=== PATIENT | female | born 1935 | race Caucasian/White ===

== ENCOUNTER → 2016-11-19 | Outpatient (REF) | payer MEDICARE, OTHER ==
[~2016-11-19] MED LIST: AMLO5TAB2 PO; COUM2.5T11 PO; DIOV320T PO; FURO20TA2 PO; FURO40TA2 PO; GABA-282 PO; KETO2CR TOP; MILKSUS PO; MYOFLEX TOP; NEXI40CA PO; ONDA1TAB15 PO; SENN1TAB2 PO; STAR120T3 PO; STIMATE; TRAM50TA2 PO; TRAZO50TA OR; TYLE500T78 PO; VALS1TAB48 PO; ZETI10TA2 PO; lantus SC; lomotil OR; novolog SC; ventolin inhaler
== END ==
LOC: M LAB REF 17:17
PROVIDERS: ATTEND Nurse Practitioner Adult Health
DX: N61.0 Mastitis without abscess (principal)

== ENCOUNTER → 2017-10-08 | Outpatient (REF) | payer MEDICARE, OTHER ==
[2017-10-08 11:24] LABS: BASO % 0.3 % (0.0-1.0); EOS # 0.1 10^3/uL (0.0-0.50); EOS % 1.7 % (0.0-3.0); HEMATOCRIT 40.3 % (36.0-47.0); HEMOGLOBIN 13.3 g/dl (12.0-16.0); IMMATURE GRANULOCYTE % 0.3 % (0-3.0); LYMPH # 1.5 10^3/uL (1.5-4.5); LYMPH % 21.7 % (24.0-44.0); MEAN CORPUSCULAR HEMOGLOBIN 28.8 pg (27.0-33.0); MEAN CORPUSCULAR VOLUME 87.2 fl (80.0-96.0); MONO # 0.6 10^3/uL (0.0-0.8); NEUTROPHILS # 4.7 10^3/uL (1.8-7.7); PLATELET COUNT, AUTOMATED 198 10^3/uL (150-450); RED BLOOD COUNT 4.62 10^6/uL (4.00-5.40); RED CELL DISTRIBUTION WIDTH 13.4 % (11.5-14.5)
[2017-10-08 11:57] LABS: C REACTIVE PROTEIN QUANTITATIV 6.12 MG/DL (0.00-0.30)
[2017-10-08 12:10] LABS: ERYTHROCYTE SEDIMENTATION RATE 46 mm/hr (0-30)
== END ==
LOC: M LABDRAW1 10:49
DX: M79.661 Pain in right lower leg (principal)
CPT/HCPCS: 86140

== ENCOUNTER → 2017-10-09 | Outpatient (REF) | payer MEDICARE, OTHER ==
[2017-10-09 19:36] LABS: FREE T3 2.5 PG/ML (2.2-4.0)
[2017-10-10 10:26] LABS: THYROID PEROXIDASE ANTIBODY < 28.0 U/ML (<60.0)
[2017-10-10 10:27] LABS: THYROGLOBULIN ANTIBODY 20.8 U/ML (<60.0)
== END ==
LOC: M LAB REF 18:11
DX: E03.9 Hypothyroidism, unspecified (principal)
CPT/HCPCS: 86800

== ENCOUNTER → 2017-11-17 | Outpatient (REF) | payer MEDICARE, OTHER ==
[2017-11-17 16:02] LABS: BASO % 0.4 % (0.0-1.0); EOS # 0.2 10^3/uL (0.0-0.50); EOS % 2.4 % (0.0-3.0); HEMATOCRIT 41.7 % (36.0-47.0); HEMOGLOBIN 13.6 g/dl (12.0-15.5); IMMATURE GRANULOCYTE % 0.4 % (0-3.0); LYMPH # 1.8 10^3/uL (1.5-4.5); LYMPH % 23.3 % (24.0-44.0); MEAN CORPUSCULAR HEMOGLOBIN 28.2 pg (27.0-33.0); MEAN CORPUSCULAR HGB CONC 32.6 g/dl (32.0-36.5); MEAN CORPUSCULAR VOLUME 86.3 fl (80.0-96.0); MONO # 0.7 10^3/uL (0.0-0.8); MONO % 8.5 % (0.0-5.0); NEUTROPHILS # 5.1 10^3/uL (1.8-7.7); PLATELET COUNT, AUTOMATED 210 10^3/uL (150-450); RED BLOOD COUNT 4.83 10^6/uL (4.00-5.40); RED CELL DISTRIBUTION WIDTH 13.4 % (11.5-14.5); WHITE BLOOD COUNT 7.8 10^3/uL (4.0-10.0)
[2017-11-17 16:42] LABS: ERYTHROCYTE SEDIMENTATION RATE 29 mm/hr (0-30)
== END ==
LOC: M LABDRAW1 13:16
DX: M25.561 Pain in right knee (principal)
CPT/HCPCS: 86140

== ENCOUNTER → 2018-02-04 | Outpatient (CLI) | payer MEDICARE, OTHER ==
[~2018-02-04] MED LIST changes: -AMLO5TAB2 PO; -COUM2.5T11 PO; -DIOV320T PO; -FURO20TA2 PO; -FURO40TA2 PO; -GABA-282 PO; +GASTROGRAFIN SOLUTION 30ML (Q9963) As Ordered; +ISOVUE-370 76% 100ML VIAL (Q9967) As Ordered; -KETO2CR TOP; -MILKSUS PO; -MYOFLEX TOP; -NEXI40CA PO; -ONDA1TAB15 PO; -SENN1TAB2 PO; -STAR120T3 PO; -STIMATE; -TRAM50TA2 PO; -TRAZO50TA OR; -TYLE500T78 PO; -VALS1TAB48 PO; -ZETI10TA2 PO; -lantus SC; -lomotil OR; -novolog SC; -ventolin inhaler
== END ==
LOC: M RAD 14:01
DX: R93.5 Abnormal findings on diagnostic imaging of other abdominal regions, including retroperitoneum (principal); R10.11 Right upper quadrant pain

== ENCOUNTER 2018-02-06 13:31 | Inpatient (IN) | payer MEDICARE, OTHER ==
[2018-02-06 15:08] LABS: BEDSIDE GLUCOSE 345 MG/DL (83-110)
[2018-02-06 15:22] LABS: BASO % 0.2 % (0.0-1.0); EOS # 0.1 10^3/uL (0.0-0.50); EOS % 1.1 % (0.0-3.0); HEMATOCRIT 39.5 % (36.0-47.0); HEMOGLOBIN 12.8 g/dl (12.0-15.5); IMMATURE GRANULOCYTE % 0.4 % (0-3.0); LYMPH % 22.1 % (24.0-44.0); MEAN CORPUSCULAR HEMOGLOBIN 28.5 pg (27.0-33.0); MEAN CORPUSCULAR HGB CONC 32.4 g/dl (32.0-36.5); MONO # 0.7 10^3/uL (0.0-0.8); MONO % 14.2 % (0.0-5.0); NEUTROPHILS # 2.8 10^3/uL (1.8-7.7); PLATELET COUNT, AUTOMATED 150 10^3/uL (150-450); RED BLOOD COUNT 4.49 10^6/uL (4.00-5.40); RED CELL DISTRIBUTION WIDTH 14.1 % (11.5-14.5); WHITE BLOOD COUNT 4.6 10^3/uL (4.0-10.0)
[2018-02-06 15:24] LABS: INR 1.06; PROTHROMBIN TIME 13.9 SECONDS (12.1-14.4)
[2018-02-06] MEDS: NS 1,000 ML IV ×2 (15:29→21:06)
[2018-02-06] MEDS: ONDANSETRON 4MG/2ML VIAL (J2405) IV (15:30)
[2018-02-06] MEDS: MORPHINE 2 MG/ML 1ML SYRINGE (J2270) IV (15:30)
[2018-02-06 15:40] LABS: LACTIC ACID SEPSIS PROTOCOL 3.1 MMOL/L (0.4-2.0)
[2018-02-06 16:37] LABS: ALBUMIN 3.3 GM/DL (3.2-5.2); ALBUMIN/GLOBULIN RATIO 0.87 (1.00-1.93); ALKALINE PHOSPHATASE 166 U/L (45-117); ALT/SGPT 21 U/L (12-78); ANION GAP 11 MEQ/L (8-16); AST/SGOT 10 U/L (7-37); BILIRUBIN,DIRECT 0.2 MG/DL (0.0-0.2); BILIRUBIN,TOTAL 0.5 MG/DL (0.2-1.0); BLOOD UREA NITROGEN 24 MG/DL (7-18); CALCIUM LEVEL 8.9 MG/DL (8.8-10.2); CARBON DIOXIDE LEVEL 28 MEQ/L (21-32); CHLORIDE LEVEL 100 MEQ/L (98-107); CK-MB VALUE MASS < 1.0 NG/ML (<3.6); CPK CREATINE PHOSPHOKINASE 38 U/L (26-192); CREATININE FOR GFR 1.29 MG/DL (0.55-1.30); GLOMERULAR FILTRATION RATE 42.2 (>32); GLUCOSE, FASTING 341 MG/DL (70-100); LIPASE 72 U/L (73-393); MB/CK RELATIVE INDEX 2.63 (< OR =4); POTASSIUM SERUM 4.7 MEQ/L (3.5-5.1); SODIUM LEVEL 139 MEQ/L (136-145); TOTAL PROTEIN 7.1 GM/DL (6.4-8.2); TROPONIN I < 0.02 NG/ML (< 0.10)
[2018-02-06] MEDS: PIPERACILLIN/TAZOBACTAM SOD 3.375 GM in D5W MINI-BAG PLUS 50 ML IV (17:29)
[2018-02-06] MEDS: SUCRALFATE SUSP 1GM/10ML UD PO (17:44)
[2018-02-06 20:14] LABS: CA 125 175.5 U/ML (<30.2)
[2018-02-06] MEDS ORDERED: LEVEMIR (INSULIN DETEMIR) 1 UNITS/0.01ML SQ (21:00)
[2018-02-06] MEDS ORDERED: DEXTROSE 50% 50 ML SYRINGE IV (21:15)
[2018-02-06] MEDS ORDERED: MORPHINE 4 MG/ML 1ML VIAL/SYRINGE (J2270) IV (21:15)
[2018-02-06] MEDS ORDERED: GLUCAGON FOR INJ 1 MG VIAL (J1610) SC (21:15)
[2018-02-06] MEDS ORDERED: GLUCOSE 4 GM CHEW TABLET PO (21:15)
[2018-02-06] MEDS ORDERED: ONDANSETRON 4MG/2ML VIAL (J2405) IV (21:15)
[2018-02-06 21:24] LABS: BEDSIDE GLUCOSE 478 MG/DL (83-110)
[2018-02-06] MEDS: GABAPENTIN 300 MG CAP PO (21:39)
[2018-02-06] MEDS: HEPARIN SOD (PORCINE) 5000 UNITS/ML VIAL SC ×3 (21:39→22:00)
[2018-02-06] MEDS: traZODone 50 MG TAB PO (21:39)
[2018-02-06] MEDS: HumaLOG INSULIN (NovoLOG) PER UNIT SC ×2 (21:40→23:47)
[2018-02-06 23:19] LABS: BEDSIDE GLUCOSE 481 MG/DL (83-110)
[2018-02-06] MEDS: PIPERACILLIN/TAZOBACTAM SOD 2.25 GM in D5W MINI-BAG PLUS 50 ML IV (23:20)
[2018-02-07] MEDS: NS 1,000 ML IV (04:25)
[2018-02-07] MEDS: PIPERACILLIN/TAZOBACTAM SOD 2.25 GM in D5W MINI-BAG PLUS 50 ML IV ×2 (05:10→12:36)
[2018-02-07 06:23] LABS: HEMATOCRIT 34.2 % (36.0-47.0); HEMOGLOBIN 11.2 g/dl (12.0-15.5); MEAN CORPUSCULAR HEMOGLOBIN 28.9 pg (27.0-33.0); MEAN CORPUSCULAR HGB CONC 32.7 g/dl (32.0-36.5); MEAN CORPUSCULAR VOLUME 88.1 fl (80.0-96.0); PLATELET COUNT, AUTOMATED 125 10^3/uL (150-450); RED BLOOD COUNT 3.88 10^6/uL (4.00-5.40); RED CELL DISTRIBUTION WIDTH 14.1 % (11.5-14.5); WHITE BLOOD COUNT 3.8 10^3/uL (4.0-10.0)
[2018-02-07 06:40] LABS: ALBUMIN 2.7 GM/DL (3.2-5.2); ALBUMIN/GLOBULIN RATIO 0.79 (1.00-1.93); ALKALINE PHOSPHATASE 125 U/L (45-117); ALT/SGPT 20 U/L (12-78); ANION GAP 7 MEQ/L (8-16); AST/SGOT 13 U/L (7-37); BILIRUBIN,TOTAL 0.5 MG/DL (0.2-1.0); BLOOD UREA NITROGEN 23 MG/DL (7-18); CALCIUM LEVEL 8.2 MG/DL (8.8-10.2); CARBON DIOXIDE LEVEL 29 MEQ/L (21-32); CHLORIDE LEVEL 104 MEQ/L (98-107); CREATININE FOR GFR 1.27 MG/DL (0.55-1.30); GLUCOSE, FASTING 301 MG/DL (70-100); POTASSIUM SERUM 4.4 MEQ/L (3.5-5.1); SODIUM LEVEL 140 MEQ/L (136-145); TOTAL PROTEIN 6.1 GM/DL (6.4-8.2)
[2018-02-07] MEDS: HumaLOG INSULIN (NovoLOG) PER UNIT SC ×2 (07:53→12:36)
[2018-02-07] MEDS: VALSARTAN 80 MG TAB (DIOVAN) PO (07:54)
[2018-02-07] MEDS: amLODIPine 5 MG TAB PO (07:55)
[2018-02-07] MEDS: LEVOTHYROXINE 25MCG TABLET (0.025MG) PO (07:55)
[2018-02-07] MEDS: PANTOPRAZOLE 40MG TAB (PROTONIX) PO (07:55)
[2018-02-07] MEDS: FUROSEMIDE 40 MG TAB PO (07:56)
[2018-02-07] MEDS: EZETIMIBE 10 MG TAB (ZETIA) PO (07:56)
[2018-02-07] MEDS ORDERED: MORPHINE 4 MG/ML 1ML VIAL/SYRINGE (J2270) IV (08:30)
[2018-02-07] MEDS: NYSTATIN 100,000 UNITS/GM TOPICAL PWD 15 GM TOP (10:23)
[2018-02-07 11:36] LABS: BEDSIDE GLUCOSE 402 MG/DL (83-110)
[2018-02-07] MEDS ORDERED: INSULIN GLARGINE SC (21:00)
== END 2018-02-07 14:15 | disposition home or self-care (01) | DRG 375 ==
LOC: M ED 13:31 → M ED INP 21:06 → M MS5PR 22:55
DX: C78.6 Secondary malignant neoplasm of retroperitoneum and peritoneum (principal); C56.1 Malignant neoplasm of right ovary; C78.7 Secondary malignant neoplasm of liver and intrahepatic bile duct; E87.2 Acidosis; E11.65 Type 2 diabetes mellitus with hyperglycemia; I12.9 Hypertensive chronic kidney disease with stage 1 through stage 4 chronic kidney disease, or unspecified chronic kidney disease; E78.5 Hyperlipidemia, unspecified; K21.9 Gastro-esophageal reflux disease without esophagitis; M79.7 Fibromyalgia; E66.9 Obesity, unspecified; N18.9 Chronic kidney disease, unspecified; E03.9 Hypothyroidism, unspecified; K80.20 Calculus of gallbladder without cholecystitis without obstruction; K76.0 Fatty (change of) liver, not elsewhere classified; D69.1 Qualitative platelet defects; M19.90 Unspecified osteoarthritis, unspecified site; Z96.651 Presence of right artificial knee joint; Z90.710 Acquired absence of both cervix and uterus; Z98.49 Cataract extraction status, unspecified eye; Z79.4 Long term (current) use of insulin; Z79.899 Other long term (current) drug therapy; Z88.6 Allergy status to analgesic agent; Z91.041 Radiographic dye allergy status; Z88.8 Allergy status to other drugs, medicaments and biological substances; Z88.2 Allergy status to sulfonamides; Z91.013 Allergy to seafood; Z86.73 Personal history of transient ischemic attack (TIA), and cerebral infarction without residual deficits

== ENCOUNTER 2018-02-17 19:22 | Observation (INO) | payer MEDICARE, OTHER ==
[2018-02-17] MEDS: traZODone 50 MG TAB PO (21:00)
[2018-02-17] MEDS: NS 1,000 ML IV (21:00)
[2018-02-17] MEDS: LANTUS SC (21:00)
[2018-02-17] MEDS ORDERED: LEVEMIR (INSULIN DETEMIR) 1 UNITS/0.01ML SC (21:00)
[2018-02-17] MEDS: HumuLIN R (REGULAR) INSULIN (NovoLIN R) **100U/ML** PER UNIT IV ×2 (21:00→23:00)
[2018-02-17 21:06] LABS: BASO % 0.3 % (0.0-1.0); EOS % 0.5 % (0.0-3.0); HEMATOCRIT 41.2 % (36.0-47.0); HEMOGLOBIN 13.2 g/dl (12.0-15.5); IMMATURE GRANULOCYTE % 0.3 % (0-3.0); LYMPH # 0.9 10^3/uL (1.5-4.5); LYMPH % 16.2 % (24.0-44.0); MEAN CORPUSCULAR HEMOGLOBIN 28.9 pg (27.0-33.0); MEAN CORPUSCULAR VOLUME 90.2 fl (80.0-96.0); MONO # 0.8 10^3/uL (0.0-0.8); MONO % 13.1 % (0.0-5.0); NEUTROPHILS % 69.6 % (36.0-66.0); PLATELET COUNT, AUTOMATED 155 10^3/uL (150-450); RED BLOOD COUNT 4.57 10^6/uL (4.00-5.40); RED CELL DISTRIBUTION WIDTH 14.7 % (11.5-14.5); WHITE BLOOD COUNT 5.8 10^3/uL (4.0-10.0)
[2018-02-17] MEDS: PERCOCET 5MG/325MG TAB PO (21:15)
[2018-02-17 21:42] LABS: ESTIMATED AVERAGE GLUCOSE 255 MG/DL (60-110); HEMOGLOBIN A1c 10.5 %
[2018-02-17 21:58] LABS: VENOUS BASE EXCESS -4.2 (-2.0-2.0); VENOUS HCO3 21.6 MEQ/L (23.0-27.0); VENOUS O2 SATURATION 66.8 % (60.0-80.0); VENOUS PARTIAL PRESSURE CO2 42.3 mmHg (38.0-50.0); VENOUS PARTIAL PRESSURE O2 36.9 mmHg (30.0-50.0); VENOUS PH 7.326 UNITS (7.330-7.430); VENOUS STANDARD HCO3 20.4 MEQ/L; VENOUS TOTAL CO2 22.9 MEQ/L (24.0-28.0)
[2018-02-17 22:22] LABS: ALBUMIN 3.2 GM/DL (3.2-5.2); ALBUMIN/GLOBULIN RATIO 0.94 (1.00-1.93); ALKALINE PHOSPHATASE 211 U/L (45-117); ALT/SGPT 24 U/L (12-78); ANION GAP 13 MEQ/L (8-16); AST/SGOT 10 U/L (7-37); BILIRUBIN,DIRECT 0.2 MG/DL (0.0-0.2); BILIRUBIN,TOTAL 0.6 MG/DL (0.2-1.0); BLOOD UREA NITROGEN 40 MG/DL (7-18); CALCIUM LEVEL 8.5 MG/DL (8.8-10.2); CARBON DIOXIDE LEVEL 26 MEQ/L (21-32); CHLORIDE LEVEL 96 MEQ/L (98-107); CREATININE FOR GFR 1.87 MG/DL (0.55-1.30); GLOMERULAR FILTRATION RATE 27.5 (>32); LIPASE 41 U/L (73-393); POTASSIUM SERUM 4.1 MEQ/L (3.5-5.1); SODIUM LEVEL 135 MEQ/L (136-145); TOTAL PROTEIN 6.6 GM/DL (6.4-8.2)
[2018-02-17] MEDS ORDERED: GLUCAGON FOR INJ 1 MG VIAL (J1610) SC (22:45)
[2018-02-17] MEDS ORDERED: GLUCOSE 4 GM CHEW TABLET PO (22:45)
[2018-02-17] MEDS ORDERED: ALBUTEROL 90 MCG/ACT 8GM HFA INHALER INH (22:45)
[2018-02-17] MEDS ORDERED: ONDANSETRON 4 MG ORAL DISINTEGRATING TAB (Q0162 PER 1MG) PO (22:45)
[2018-02-17] MEDS ORDERED: BISACODYL 10 MG SUPP PR (22:45)
[2018-02-17] MEDS ORDERED: D5W/LR 1,000 ML IV (22:45)
[2018-02-17 22:52] LABS: GLUCOSE, FASTING 715 MG/DL (70-100)
[2018-02-17] MEDS: CEPHALEXIN 500 MG CAP PO (23:51)
[2018-02-18] MEDS: GABAPENTIN 300 MG CAP PO (01:06)
[2018-02-18] MEDS ORDERED: HumaLOG INSULIN (NovoLOG) PER UNIT SC ×2 (02:00→07:30)
[2018-02-18] MEDS: HumaLOG INSULIN (NovoLOG) PER UNIT SC ×4 (02:13→13:00)
[2018-02-18 03:19] LABS: BEDSIDE GLUCOSE 454 MG/DL (83-110)
[2018-02-18 05:56] LABS: BEDSIDE GLUCOSE 105 MG/DL (83-110)
[2018-02-18 06:31] LABS: HEMATOCRIT 36.7 % (36.0-47.0); HEMOGLOBIN 12.2 g/dl (12.0-15.5); MEAN CORPUSCULAR HEMOGLOBIN 28.6 pg (27.0-33.0); MEAN CORPUSCULAR HGB CONC 33.2 g/dl (32.0-36.5); MEAN CORPUSCULAR VOLUME 85.9 fl (80.0-96.0); PLATELET COUNT, AUTOMATED 144 10^3/uL (150-450); RED BLOOD COUNT 4.27 10^6/uL (4.00-5.40); RED CELL DISTRIBUTION WIDTH 14.3 % (11.5-14.5)
[2018-02-18 06:43] LABS: ESTIMATED AVERAGE GLUCOSE 258 MG/DL (60-110); HEMOGLOBIN A1c 10.6 %
[2018-02-18 06:57] LABS: ALBUMIN 3.1 GM/DL (3.2-5.2); ALBUMIN/GLOBULIN RATIO 0.86 (1.00-1.93); ALKALINE PHOSPHATASE 195 U/L (45-117); ALT/SGPT 23 U/L (12-78); ANION GAP 9 MEQ/L (8-16); AST/SGOT 12 U/L (7-37); BILIRUBIN,TOTAL 0.4 MG/DL (0.2-1.0); BLOOD UREA NITROGEN 37 MG/DL (7-18); CARBON DIOXIDE LEVEL 29 MEQ/L (21-32); CHLORIDE LEVEL 104 MEQ/L (98-107); GLOMERULAR FILTRATION RATE 41.9 (>32); GLUCOSE, FASTING 81 MG/DL (70-100); POTASSIUM SERUM 3.4 MEQ/L (3.5-5.1); SODIUM LEVEL 142 MEQ/L (136-145); TOTAL PROTEIN 6.7 GM/DL (6.4-8.2)
[2018-02-18] MEDS: VALSARTAN 80 MG TAB (DIOVAN) PO (09:22)
[2018-02-18] MEDS: NS 1,000 ML IV (09:22)
[2018-02-18] MEDS: PANTOPRAZOLE 40MG TAB (PROTONIX) PO (09:23)
[2018-02-18] MEDS: EZETIMIBE 10 MG TAB (ZETIA) PO (09:23)
[2018-02-18] MEDS: FUROSEMIDE 40 MG TAB PO (09:23)
[2018-02-18] MEDS: amLODIPine 5 MG TAB PO (09:23)
[2018-02-18] MEDS: CEPHALEXIN 500 MG CAP PO ×2 (09:23→13:00)
[2018-02-18] MEDS: LEVOTHYROXINE 25MCG TABLET (0.025MG) PO (09:23)
[2018-02-18] MEDS: NYSTATIN 100,000 UNITS/GM TOPICAL PWD 15 GM TOP (09:24)
[2018-02-18] MEDS: ENOXAPARIN 30 MG/0.3 ML SYR (J1650) SC (09:24)
[2018-02-18] MEDS: ANEXSIA, NORCO 7.5MG/325MG TABLET(HYDROCODONE/APAP) PO (09:29)
[2018-02-18 09:30] LABS: BEDSIDE GLUCOSE > 600 MG/DL (83-110)
[2018-02-18 09:31] LABS: BEDSIDE GLUCOSE > 600 MG/DL (83-110)
[2018-02-18 09:31] LABS: BEDSIDE GLUCOSE > 600 MG/DL (83-110)
[2018-02-18 12:00] LABS: BEDSIDE GLUCOSE 314 MG/DL (83-110)
[2018-02-18] MEDS: POTASSIUM CHLORIDE 10 MEQ SR TABLET PO (13:00)
[2018-02-18] MEDS ORDERED: LEVEMIR (INSULIN DETEMIR) 1 UNITS/0.01ML SC (21:00)
== END 2018-02-18 16:00 | disposition short-term general hospital (02) ==
LOC: M MS4PR 02-18 00:16 → M ED 19:22 → M ED INP 22:31
DX: D39.11 Neoplasm of uncertain behavior of right ovary (principal); R10.84 Generalized abdominal pain; R11.0 Nausea; N17.9 Acute kidney failure, unspecified; I10 Essential (primary) hypertension; E78.4 Other hyperlipidemia; E11.9 Type 2 diabetes mellitus without complications; M79.7 Fibromyalgia; K21.9 Gastro-esophageal reflux disease without esophagitis; Z79.4 Long term (current) use of insulin; Z91.013 Allergy to seafood; Z91.041 Radiographic dye allergy status; Z79.899 Other long term (current) drug therapy; Z88.2 Allergy status to sulfonamides; Z88.8 Allergy status to other drugs, medicaments and biological substances
CPT/HCPCS: J1650

== ENCOUNTER 2018-03-08 14:00 | Inpatient (IN) | payer MEDICARE, OTHER ==
[2018-03-08] MEDS: NS 500 ML IV (14:53)
[2018-03-08] MEDS: HYDROMORPHONE HCL 0.5 MG/ 0.5 ML SYRINGE (J1170 PER 1) IV ×2 (14:53→18:25)
[2018-03-08 15:56] LABS: BASO % 0.4 % (0.0-1.0); EOS # 0.1 10^3/uL (0.0-0.50); EOS % 1.7 % (0.0-3.0); HEMATOCRIT 36.3 % (36.0-47.0); HEMOGLOBIN 11.7 g/dl (12.0-15.5); IMMATURE GRANULOCYTE % 0.8 % (0-3.0); LYMPH # 0.8 10^3/uL (1.5-4.5); LYMPH % 15.1 % (24.0-44.0); MEAN CORPUSCULAR HEMOGLOBIN 28.6 pg (27.0-33.0); MEAN CORPUSCULAR HGB CONC 32.2 g/dl (32.0-36.5); MEAN CORPUSCULAR VOLUME 88.8 fl (80.0-96.0); MONO # 0.6 10^3/uL (0.0-0.8); MONO % 10.8 % (0.0-5.0); NEUTROPHILS # 3.7 10^3/uL (1.8-7.7); NEUTROPHILS % 71.2 % (36.0-66.0); PLATELET COUNT, AUTOMATED 176 10^3/uL (150-450); RED BLOOD COUNT 4.09 10^6/uL (4.00-5.40); RED CELL DISTRIBUTION WIDTH 20.1 % (11.5-14.5); WHITE BLOOD COUNT 5.2 10^3/uL (4.0-10.0)
[2018-03-08 16:06] LABS: INR 1.27
[2018-03-08 16:07] LABS: ALBUMIN 2.5 GM/DL (3.2-5.2); ALBUMIN/GLOBULIN RATIO 0.66 (1.00-1.93); ALKALINE PHOSPHATASE 1635 U/L (45-117); ALT/SGPT 262 U/L (12-78); AMYLASE 10 U/L (25-115); ANION GAP 9 MEQ/L (8-16); AST/SGOT 338 U/L (7-37); BILIRUBIN,DIRECT 9.7 MG/DL (0.0-0.2); BILIRUBIN,TOTAL 11.2 MG/DL (0.2-1.0); BLOOD UREA NITROGEN 16 MG/DL (7-18); CALCIUM LEVEL 8.5 MG/DL (8.8-10.2); CARBON DIOXIDE LEVEL 26 MEQ/L (21-32); CHLORIDE LEVEL 103 MEQ/L (98-107); CK-MB VALUE MASS < 1.0 NG/ML (<3.6); CPK CREATINE PHOSPHOKINASE 24 U/L (26-192); CREATININE FOR GFR 0.95 MG/DL (0.55-1.30); GLOMERULAR FILTRATION RATE > 60.0 (>32); GLUCOSE, FASTING 190 MG/DL (70-100); LIPASE 29 U/L (73-393); MB/CK RELATIVE INDEX 4.16 (< OR =4); PARTIAL THROMBOPLASTIN TIME 24.5 SECONDS (25.4-37.6); POTASSIUM SERUM 4.4 MEQ/L (3.5-5.1); SODIUM LEVEL 138 MEQ/L (136-145); TOTAL PROTEIN 6.3 GM/DL (6.4-8.2); TROPONIN I < 0.02 NG/ML (< 0.10)
[2018-03-08] MEDS: ONDANSETRON 4MG/2ML VIAL (J2405) IV (18:24)
[2018-03-08 18:43] LABS: KETONE, URINE AUTO RFX NEGATIVE (NEGATIVE); LEUKOCYTE ESTERASE UR AUTO RFX NEGATIVE (NEGATIVE); MUCUS, URINE RFX SMALL (NEGATIVE); NITRITE, URINE AUTO RFX NEGATIVE (NEGATIVE); RBC, URINE AUTO RFX 3 /HPF (0-3); SPECIFIC GRAVITY UR AUTO RFX 1.029 (1.002-1.035); SQUAM EPITHELIAL CELL UR AURFX 14 /HPF (0-6); WBC, URINE AUTO RFX 5 /HPF (0-3)
[2018-03-08] MEDS ORDERED: ACETAMINOPHEN TAB 650MG DOSE (2X325MG) PO (19:15)
[2018-03-08] MEDS ORDERED: ALBUTEROL 90 MCG/ACT 8GM HFA INHALER INH (19:15)
[2018-03-08] MEDS ORDERED: GLUCOSE 4 GM CHEW TABLET PO (19:15)
[2018-03-08] MEDS ORDERED: ONDANSETRON 4MG/2ML VIAL (J2405) IV (19:15)
[2018-03-08] MEDS ORDERED: DEXTROSE 50% 50 ML SYRINGE IV (19:15)
[2018-03-08] MEDS ORDERED: BISACODYL 10 MG SUPP PR (19:15)
[2018-03-08] MEDS ORDERED: GLUCAGON FOR INJ 1 MG VIAL (J1610) SC (19:15)
[2018-03-08] MEDS ORDERED: ANEXSIA, NORCO 7.5MG/325MG TABLET(HYDROCODONE/APAP) PO ×2 (19:15→21:15)
[2018-03-08] MEDS ORDERED: MORPHINE 4 MG/ML 1ML VIAL/SYRINGE (J2270) IV ×2 (19:30→21:15)
[2018-03-08] MEDS: HumaLOG INSULIN (NovoLOG) PER UNIT SC (22:10)
[2018-03-08 22:32] LABS: BEDSIDE GLUCOSE 195 MG/DL (83-110)
[2018-03-08] MEDS: LANTUS 100 UNIT/ML SC (22:38)
[2018-03-08] MEDS: ONDANSETRON 4 MG ORAL DISINTEGRATING TAB (Q0162 PER 1MG) PO (22:58)
[2018-03-08] MEDS: traZODone 50 MG TAB PO (23:02)
[2018-03-08] MEDS: GABAPENTIN 300 MG CAP PO (23:02)
[2018-03-08] MEDS: PERCOCET 5MG/325MG TAB PO (23:05)
[2018-03-09 05:14] LABS: HEMATOCRIT 33.2 % (36.0-47.0); HEMOGLOBIN 10.7 g/dl (12.0-15.5); MEAN CORPUSCULAR HEMOGLOBIN 28.7 pg (27.0-33.0); MEAN CORPUSCULAR HGB CONC 32.2 g/dl (32.0-36.5); PLATELET COUNT, AUTOMATED 166 10^3/uL (150-450); RED BLOOD COUNT 3.73 10^6/uL (4.00-5.40); RED CELL DISTRIBUTION WIDTH 20.4 % (11.5-14.5); WHITE BLOOD COUNT 4.9 10^3/uL (4.0-10.0)
[2018-03-09 05:48] LABS: ESTIMATED AVERAGE GLUCOSE 214 MG/DL (60-110); HEMOGLOBIN A1c 9.1 %
[2018-03-09] MEDS: LEVOTHYROXINE 25MCG TABLET (0.025MG) PO (05:49)
[2018-03-09 05:50] LABS: ALBUMIN 2.3 GM/DL (3.2-5.2); ALBUMIN/GLOBULIN RATIO 0.53 (1.00-1.93); ALKALINE PHOSPHATASE 1455 U/L (45-117); ALT/SGPT 241 U/L (12-78); ANION GAP 12 MEQ/L (8-16); AST/SGOT 322 U/L (7-37); BILIRUBIN,TOTAL 11.4 MG/DL (0.2-1.0); BLOOD UREA NITROGEN 17 MG/DL (7-18); CALCIUM LEVEL 8.6 MG/DL (8.8-10.2); CARBON DIOXIDE LEVEL 24 MEQ/L (21-32); CHLORIDE LEVEL 102 MEQ/L (98-107); CREATININE FOR GFR 0.94 MG/DL (0.55-1.30); GLOMERULAR FILTRATION RATE > 60.0 (>32); GLUCOSE, FASTING 229 MG/DL (70-100); POTASSIUM SERUM 4.4 MEQ/L (3.5-5.1); SODIUM LEVEL 138 MEQ/L (136-145); TOTAL PROTEIN 6.6 GM/DL (6.4-8.2)
[2018-03-09] MEDS: ENOXAPARIN 40 MG/0.4 ML SYRINGE (J1650) SC (09:00)
[2018-03-09] MEDS: EZETIMIBE 10 MG TAB (ZETIA) PO (09:53)
[2018-03-09] MEDS: PANTOPRAZOLE 40MG TAB (PROTONIX) PO (09:57)
[2018-03-09] MEDS: MULTIVITAMINS/MINERALS THERAP 1 TAB PO (09:57)
[2018-03-09] MEDS: NYSTATIN 100,000 UNITS/GM TOPICAL PWD 15 GM TOP (09:58)
[2018-03-09] MEDS: amLODIPine 5 MG TAB PO (10:02)
[2018-03-09] MEDS: ONDANSETRON 4 MG ORAL DISINTEGRATING TAB (Q0162 PER 1MG) PO (11:36)
[2018-03-09] MEDS ORDERED: CIPROFLOXACIN 400 MG in APPROPRIATE DILUENT 1 EA IV (12:00)
[2018-03-09] MEDS: KCL 20MEQ IN 0.45NS 1000ML 1,000 ML IV ×4 (13:00→21:41)
[2018-03-09] MEDS ORDERED: metroNIDAZOLE 500 MG in APPROPRIATE DILUENT 1 EA IV (13:00)
[2018-03-09 13:11] LABS: BEDSIDE GLUCOSE 233 MG/DL (83-110)
[2018-03-09] MEDS: PERCOCET 5MG/325MG TAB PO (13:37)
[2018-03-09] MEDS: HumaLOG INSULIN (NovoLOG) PER UNIT SC ×2 (13:40→18:00)
[2018-03-09] MEDS ORDERED: ONDANSETRON 4MG/2ML VIAL (J2405) As Ordered (14:48)
[2018-03-09] MEDS ORDERED: LIDOCAINE 2% INJ 100 MG/5 ML SDV (FOR ANES.) As Ordered (14:48)
[2018-03-09] MEDS ORDERED: fentaNYL 100 MCG/2 ML INJECTION (J3010) As Ordered ×3 (14:48→19:03)
[2018-03-09] MEDS ORDERED: PROPOFOL 200 MG/20 ML VIAL As Ordered (14:48)
[2018-03-09] MEDS ORDERED: ROCURONIUM BROMIDE 50 MG/5 ML VIAL As Ordered (14:48)
[2018-03-09] MEDS: DESMOPRESSIN ACETATE IV (15:07)
[2018-03-09] MEDS: NS IV (15:07)
[2018-03-09 15:50] LABS: IMMEDIATE SPIN CROSSMATCH 1
[2018-03-09] MEDS ORDERED: ISOVUE-300 61% 50ML VIAL (Q9967) As Ordered (16:24)
[2018-03-09] MEDS: HumuLIN N INSULIN (NovoLIN N) PER UNIT SC (17:30)
[2018-03-09] MEDS ORDERED: METOCLOPRAMIDE INJ 10MG/2ML VIAL (J2765) As Ordered (19:49)
[2018-03-09] MEDS ORDERED: DESFLURANE 240 ML INHALANT As Ordered (19:52)
[2018-03-09] MEDS ORDERED: GLYCOPYRROLATE INJ 0.2 MG/ML 2 ML VIAL As Ordered (19:56)
[2018-03-09] MEDS ORDERED: NEOSTIGMINE 10 MG/10 ML VIAL (J2710) As Ordered (19:56)
[2018-03-09] MEDS ORDERED: fentaNYL 100 MCG/2 ML INJECTION (J3010) IV (20:30)
[2018-03-09] MEDS ORDERED: ONDANSETRON 4MG/2ML VIAL (J2405) IV (20:30)
[2018-03-09] MEDS: LR 1,000 ML IV (20:30)
[2018-03-09] MEDS: traZODone 50 MG TAB PO (21:00)
[2018-03-09] MEDS: GABAPENTIN 300 MG CAP PO (21:00)
[2018-03-09 21:50] LABS: BEDSIDE GLUCOSE 219 MG/DL (83-110)
[2018-03-09 21:56] LABS: TYPE AND SCREEN 1
[2018-03-09 23:53] LABS: BEDSIDE GLUCOSE 240 MG/DL (83-110)
[2018-03-10] MEDS: LANTUS 100 UNIT/ML SC (01:19)
[2018-03-10] MEDS: metroNIDAZOLE 500 MG in APPROPRIATE DILUENT 1 EA IV ×3 (01:43→14:00)
[2018-03-10] MEDS: CIPROFLOXACIN 400 MG in APPROPRIATE DILUENT 1 EA IV ×2 (03:04→09:00)
[2018-03-10 05:34] LABS: BEDSIDE GLUCOSE 252 MG/DL (83-110)
[2018-03-10] MEDS: LEVOTHYROXINE 25MCG TABLET (0.025MG) PO (05:37)
[2018-03-10] MEDS: HumaLOG INSULIN (NovoLOG) PER UNIT SC ×4 (05:37→18:45)
[2018-03-10 05:41] LABS: HEMOGLOBIN 9.3 g/dl (12.0-15.5); MEAN CORPUSCULAR HEMOGLOBIN 28.9 pg (27.0-33.0); MEAN CORPUSCULAR HGB CONC 33.2 g/dl (32.0-36.5); PLATELET COUNT, AUTOMATED 197 10^3/uL (150-450); RED BLOOD COUNT 3.22 10^6/uL (4.00-5.40); RED CELL DISTRIBUTION WIDTH 20.1 % (11.5-14.5); WHITE BLOOD COUNT 5.1 10^3/uL (4.0-10.0)
[2018-03-10 06:09] LABS: ALBUMIN 2.6 GM/DL (3.2-5.2); ALBUMIN/GLOBULIN RATIO 0.65 (1.00-1.93); ALKALINE PHOSPHATASE 1213 U/L (45-117); ALT/SGPT 184 U/L (12-78); ANION GAP 9 MEQ/L (8-16); AST/SGOT 206 U/L (7-37); BILIRUBIN,TOTAL 11.5 MG/DL (0.2-1.0); BLOOD UREA NITROGEN 15 MG/DL (7-18); CALCIUM LEVEL 8.3 MG/DL (8.8-10.2); CARBON DIOXIDE LEVEL 27 MEQ/L (21-32); CHLORIDE LEVEL 101 MEQ/L (98-107); CREATININE FOR GFR 0.95 MG/DL (0.55-1.30); GLOMERULAR FILTRATION RATE > 60.0 (>32); GLUCOSE, FASTING 241 MG/DL (70-100); MAGNESIUM LEVEL 1.8 MG/DL (1.8-2.4); POTASSIUM SERUM 3.8 MEQ/L (3.5-5.1); SODIUM LEVEL 137 MEQ/L (136-145); TOTAL PROTEIN 6.6 GM/DL (6.4-8.2)
[2018-03-10] MEDS: HumuLIN N INSULIN (NovoLIN N) PER UNIT SC ×2 (07:30→18:45)
[2018-03-10] MEDS: NYSTATIN 100,000 UNITS/GM TOPICAL PWD 15 GM TOP (09:00)
[2018-03-10] MEDS ORDERED: FONDAPARINUX SODIUM 2.5 MG/0.5 ML SYR (J1652 PER 0.5MG) SC (09:00)
[2018-03-10] MEDS: EZETIMIBE 10 MG TAB (ZETIA) PO (09:00)
[2018-03-10] MEDS: PANTOPRAZOLE 40MG TAB (PROTONIX) PO (09:00)
[2018-03-10] MEDS: MULTIVITAMINS/MINERALS THERAP 1 TAB PO (09:00)
[2018-03-10] MEDS: amLODIPine 5 MG TAB PO (10:15)
[2018-03-10 12:43] LABS: BEDSIDE GLUCOSE 142 MG/DL (83-110)
[2018-03-10] MEDS: PERCOCET 5MG/325MG TAB PO (16:47)
[2018-03-10 17:26] LABS: BEDSIDE GLUCOSE 147 MG/DL (83-110)
== END 2018-03-10 19:55 | disposition short-term general hospital (02) | DRG 445 ==
LOC: M ED 14:00 → M ED INP 19:13 → M PCU 21:13
PROC: 0DJ08ZZ Inspection of Upper Intestinal Tract, Via Natural or Artificial Opening Endoscopic (ICD-10-PCS; principal; 2018-03-09 16:00)
PROC: 30233K1 Transfusion of Nonautologous Frozen Plasma into Peripheral Vein, Percutaneous Approach (ICD-10-PCS; 2018-03-09 17:56)
PROC: 30233R1 Transfusion of Nonautologous Platelets into Peripheral Vein, Percutaneous Approach (ICD-10-PCS; 2018-03-09 17:56)
DX: K83.1 Obstruction of bile duct (principal); C56.1 Malignant neoplasm of right ovary; C78.6 Secondary malignant neoplasm of retroperitoneum and peritoneum; E11.9 Type 2 diabetes mellitus without complications; I10 Essential (primary) hypertension; E78.5 Hyperlipidemia, unspecified; K21.9 Gastro-esophageal reflux disease without esophagitis; M79.7 Fibromyalgia; K80.20 Calculus of gallbladder without cholecystitis without obstruction; Z66 Do not resuscitate; E66.9 Obesity, unspecified; K76.0 Fatty (change of) liver, not elsewhere classified; M19.90 Unspecified osteoarthritis, unspecified site; K86.89 Other specified diseases of pancreas; D69.1 Qualitative platelet defects; Z90.710 Acquired absence of both cervix and uterus; Z96.651 Presence of right artificial knee joint; Z98.49 Cataract extraction status, unspecified eye; Z79.4 Long term (current) use of insulin; Z79.899 Other long term (current) drug therapy; Z91.041 Radiographic dye allergy status; Z88.6 Allergy status to analgesic agent; Z91.013 Allergy to seafood; Z88.2 Allergy status to sulfonamides; Z88.8 Allergy status to other drugs, medicaments and biological substances